=== PATIENT | male | born 1985 | race Two or more races ===

== ENCOUNTER 2024-12-22 12:11 | Emergency (ER) | payer OTHER ==
[~2024-12-22] VITALS: Ht 172.7 cm; Wt 63.2 kg
[2024-12-22 13:28] VITALS: BP 132/71; PULSE 72; RESP 15; TEMP 97.2; O2SAT 96
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
[2024-12-22] MEDS: TETANUS-DIPTH-ACEL PERTUSSIS 0.5ML SYR Tdap IM ONE (13:41)
[2024-12-22] MEDS: ACETAMINOPHEN 500 MG TAB or CAP PO ONE (14:14)
[2024-12-22] MEDS ORDERED: IBU600T PO (14:25)
[2024-12-22] MEDS ORDERED: AMOX500T3 PO (14:25)
== END 2024-12-22 15:12 | disposition home or self-care (01) ==
LOC: ER 12:11
DX: S01.81XA Laceration without foreign body of other part of head, initial encounter (principal); X58.XXXA Exposure to other specified factors, initial encounter; Y93.89 Activity, other specified; Y92.89 Other specified places as the place of occurrence of the external cause; Y99.8 Other external cause status
CPT/HCPCS: 12011; 90471; 90715